=== PATIENT | female | born 1955 | race Caucasian/White ===

== ENCOUNTER 2018-04-11 07:19 | Emergency (ER) | payer SELFPAY ==
[~2018-04-11] VITALS: Ht 157.4 cm; Wt 54.4 kg
[2018-04-11] MEDS ORDERED: AVPAK AZITHROM250 M1 PO (09:18)
== END 2018-04-11 10:05 | disposition home or self-care (01) ==
LOC: ED 07:19
DX: J40 Bronchitis, not specified as acute or chronic (principal); J32.9 Chronic sinusitis, unspecified; Z98.890 Other specified postprocedural states

== ENCOUNTER 2021-07-10 11:08 | Inpatient (IN) | payer OTHER ==
[~2021-07-10] VITALS: Ht 157.5 cm; Wt 56.7 kg
[~2021-07-10 11:08] MED LIST: AVPAK AZITHROM250 M1 PO
[2021-07-10 11:23] VITALS: BP 128/57
[2021-07-10 11:49] VITALS: BP 122/60
[2021-07-10 11:54] LABS: BASO % 0.6 % (0.0-1.0); EOS # 0.1 10*3/uL (0.0-0.4); EOS % 1.1 % (1.0-4.0); HEMATOCRIT 38.3 % (37.0-47.0); LYMPH # 1.6 10*3/uL (1.3-4.4); LYMPH % 23.5 % (27.0-41.0); MEAN CELL VOLUME 80.3 fl (81.0-99.0); MEAN CORPUSCULAR HGB 25.6 pg (27.0-31.0); MEAN CORPUSCULAR HGB CONC 31.9 g/dl (33.0-37.0); MEAN PLATELET VOLUME 10.8 fl (9.6-12.3); MONO # 0.4 10*3/uL (0.1-1.0); MONO % 5.9 % (3.0-9.0); NEUT # 4.8 10*3/uL (2.3-7.9); NEUT % 68.5 % (47.0-73.0); PLATELET COUNT AUTOMATED 215 10*3/uL (130-400); RED BLOOD COUNT 4.77 10*6/uL (4.10-5.10); RED CELL DISTRI WIDTH 14.2 % (0-14.5)
[2021-07-10] MEDS ORDERED: TOPROL XL25 MG PO (11:58)
[2021-07-10] MEDS ORDERED: SIMVASTATIN20 MG PO (11:58)
[2021-07-10] MEDS ORDERED: LOSARTAN POTASS25 M1 PO (11:59)
[2021-07-10] MEDS ORDERED: VITAMIN D350 MCG PO (12:02)
[2021-07-10] MEDS ORDERED: LATANOPROST2.5 ML OP (12:03)
[2021-07-10] MEDS ORDERED: COMBIGAN 0.2%-010 ML OP (12:03)
[2021-07-10 12:22] LABS: ALBUMIN 3.8 gm/dl (3.1-4.5); ALKALINE PHOSPHATASE 69 U/L (45-117); BUN 19 mg/dl (7-24); CHLORIDE 111 mmol/L (98-107); CREATININE 0.97 mg/dL (0.55-1.02); POTASSIUM 3.7 mmol/L (3.5-5.1); SGOT/AST 34 IU/L (3-35); SGPT/ALT 69 U/L (12-78); SODIUM 143 mmol/L (136-145)
[2021-07-10 12:23] LABS: TROPONIN I 0.036 ng/ml (<0.045)
[2021-07-10] MEDS ORDERED: ATENOLOL25 MG PO (13:29)
[2021-07-10 14:02] VITALS: BP 160/89
[2021-07-10 15:47] VITALS: BP 165/87
[2021-07-10 16:23] VITALS: BP 184/110
[2021-07-10 20:00] VITALS: BP 154/92
[2021-07-11] VITALS: BP 153/85
[2021-07-11 07:10] LABS: BASO % 0.6 % (0.0-1.0); EOS # 0.2 10*3/uL (0.0-0.4); EOS % 2.2 % (1.0-4.0); HEMATOCRIT 41.3 % (37.0-47.0); LYMPH % 27.9 % (27.0-41.0); MEAN CELL VOLUME 79.6 fl (81.0-99.0); MEAN CORPUSCULAR HGB 24.9 pg (27.0-31.0); MEAN CORPUSCULAR HGB CONC 31.2 g/dl (33.0-37.0); MEAN PLATELET VOLUME 11.2 fl (9.6-12.3); MONO # 0.7 10*3/uL (0.1-1.0); NEUT # 4.2 10*3/uL (2.3-7.9); PLATELET COUNT AUTOMATED 239 10*3/uL (130-400); RED BLOOD COUNT 5.19 10*6/uL (4.10-5.10); RED CELL DISTRI WIDTH 14.3 % (0-14.5); WHITE BLOOD COUNT 7.1 10*3/uL (4.8-10.8)
[2021-07-11 07:41] LABS: ALBUMIN 3.8 gm/dl (3.1-4.5); BUN 23 mg/dl (7-24); CHLORIDE 106 mmol/L (98-107); CHOLESTEROL 200 mg/dL (<200); CREATININE 0.91 mg/dL (0.55-1.02); POTASSIUM 3.9 mmol/L (3.5-5.1); SGOT/AST 29 IU/L (3-35); SGPT/ALT 64 U/L (12-78); SODIUM 140 mmol/L (136-145); TRIGLYCERIDES 82 mg/dl (<150)
[2021-07-11 07:42] LABS: ALKALINE PHOSPHATASE 67 U/L (45-117); LDL CHOLESTEROL 130 mg/dL (9-159); TOTAL PROTEIN 7.2 gm/dL (6.4-8.2)
[2021-07-11 08:00] VITALS: BP 134/84
[2021-07-11 16:00] VITALS: BP 151/77
[2021-07-11 20:00] VITALS: BP 154/76
[2021-07-12] VITALS (9 sets, daily range): BP systolic 120–169; BP diastolic 60–108
[2021-07-12 10:37] LABS: BASO # 0.1 10*3/uL (0.0-0.1); BASO % 0.6 % (0.0-1.0); EOS # 0.1 10*3/uL (0.0-0.4); EOS % 1.6 % (1.0-4.0); HEMATOCRIT 42.5 % (37.0-47.0); LYMPH % 24.4 % (27.0-41.0); MEAN CORPUSCULAR HGB 25.1 pg (27.0-31.0); MEAN CORPUSCULAR HGB CONC 31.8 g/dl (33.0-37.0); MONO # 0.7 10*3/uL (0.1-1.0); NEUT # 5.4 10*3/uL (2.3-7.9); NEUT % 65.2 % (47.0-73.0); PLATELET COUNT AUTOMATED 248 10*3/uL (130-400); RED BLOOD COUNT 5.38 10*6/uL (4.10-5.10); RED CELL DISTRI WIDTH 14.1 % (0-14.5); WHITE BLOOD COUNT 8.3 10*3/uL (4.8-10.8)
[2021-07-12 10:55] LABS: ALBUMIN 3.9 gm/dl (3.1-4.5); ALKALINE PHOSPHATASE 70 U/L (45-117); BUN 27 mg/dl (7-24); CHLORIDE 106 mmol/L (98-107); CREATININE 1.03 mg/dL (0.55-1.02); POTASSIUM 4.2 mmol/L (3.5-5.1); SGOT/AST 20 IU/L (3-35); SGPT/ALT 53 U/L (12-78); SODIUM 137 mmol/L (136-145); TOTAL PROTEIN 7.3 gm/dL (6.4-8.2)
[2021-07-12 10:57] LABS: TROPONIN I < 0.015 ng/ml (<0.045)
[2021-07-12 16:33] LABS: ACT PARTIAL THROMBO TIME 21.5 SECONDS (20.0-32.1)
[2021-07-13] VITALS: BP 136/85
[2021-07-13 04:00] VITALS: BP 116/64
[2021-07-13 08:00] VITALS: BP 119/62
[2021-07-13 12:00] VITALS: BP 91/47
[2021-07-13 16:00] VITALS: BP 109/69
[2021-07-13 20:00] VITALS: BP 148/74
[2021-07-14] VITALS: BP 124/49
== END 2021-07-14 03:24 | disposition short-term general hospital (02) | DRG 292 ==
LOC: ED 11:08 → EDHOLD 13:13 → 4E 13:13 → ICCU 13:13 → 5E 15:44 → 4E 16:19 → 5E 07-11 22:59 → ICCU 07-12 10:03
PROVIDERS: Emergency Medicine; Family Medicine; Social Worker Clinical; ADMIT Internal Medicine; ATTEND Internal Medicine
DX: I11.0 Hypertensive heart disease with heart failure (principal); Q23.1 Congenital insufficiency of aortic valve; E83.41 Hypermagnesemia; I50.9 Heart failure, unspecified; R73.9 Hyperglycemia, unspecified; I45.5 Other specified heart block; E78.00 Pure hypercholesterolemia, unspecified; R00.8 Other abnormalities of heart beat; E78.5 Hyperlipidemia, unspecified; I49.3 Ventricular premature depolarization; E87.8 Other disorders of electrolyte and fluid balance, not elsewhere classified; Z88.6 Allergy status to analgesic agent; Z82.49 Family history of ischemic heart disease and other diseases of the circulatory system; Z82.3 Family history of stroke

== ENCOUNTER 2022-03-02 15:49 | Emergency (ER) | payer OTHER, MEDICAID ==
[~2022-03-02] VITALS: Wt 62.1 kg
[~2022-03-02 15:49] MED LIST changes: +ATENOLOL25 MG PO; +COMBIGAN 0.2%-010 ML OP; +LATANOPROST2.5 ML OP; +LOSARTAN POTASS25 M1 PO; +SIMVASTATIN20 MG PO; +TOPROL XL25 MG PO; +VITAMIN D350 MCG PO
== END 2022-03-02 16:43 | disposition home or self-care (01) ==
LOC: ED 15:49
DX: S10.86XA Insect bite of other specified part of neck, initial encounter (principal); W57.XXXA Bitten or stung by nonvenomous insect and other nonvenomous arthropods, initial encounter; Y93.89 Activity, other specified; Y92.89 Other specified places as the place of occurrence of the external cause; Y99.8 Other external cause status

== ENCOUNTER 2024-09-10 09:31 | Emergency (ER) | payer MEDICARE ==
[~2024-09-10] VITALS: Ht 157.4 cm; Wt 59.0 kg
[2024-09-10 10:00] LABS: BASO % 0.4 % (0.0-1.0); EOS # 0.2 10*3/uL (0.0-0.4); EOS % 1.4 % (1.0-4.0); HEMATOCRIT 34.3 % (37.0-47.0); LYMPH # 1.3 10*3/uL (1.3-4.4); LYMPH % 12.1 % (27.0-41.0); MEAN CELL VOLUME 80.1 fl (81.0-99.0); MEAN CORPUSCULAR HGB 25.5 pg (27.0-31.0); MEAN CORPUSCULAR HGB CONC 31.8 g/dl (33.0-37.0); MEAN PLATELET VOLUME 9.7 fl (9.6-12.3); MONO # 0.6 10*3/uL (0.1-1.0); MONO % 5.5 % (3.0-9.0); NEUT # 8.7 10*3/uL (2.3-7.9); PLATELET COUNT AUTOMATED 198 10*3/uL (130-400); RED BLOOD COUNT 4.28 10*6/uL (4.10-5.10); RED CELL DISTRI WIDTH 13.2 % (0-14.5); WHITE BLOOD COUNT 10.8 10*3/uL (4.8-10.8)
[2024-09-10 10:13] LABS: ACT PARTIAL THROMBO TIME 22.2 SECONDS (20.0-32.1)
[2024-09-10 10:24] LABS: POTASSIUM 3.8 mmol/L (3.4-5.1); TOTAL PROTEIN 6.4 gm/dL (6.0-8.0)
[2024-09-10] MEDS ORDERED: HEPARIN SODIUM 250 ML IV SCH (10:30)
[2024-09-10] MEDS ORDERED: ASPIRIN, CHEWABLE 81 MG TAB PO ONE (10:40)
[2024-09-10] MEDS ORDERED: MORPHINE Sulfate 2 MG/ML SYR IV ONE (12:40)
== END 2024-09-10 13:30 | disposition short-term general hospital (02) ==
LOC: ED 09:31
PROVIDERS: Internal Medicine
DX: I62.9 Nontraumatic intracranial hemorrhage, unspecified (principal); R11.2 Nausea with vomiting, unspecified; R03.0 Elevated blood-pressure reading, without diagnosis of hypertension; I25.10 Atherosclerotic heart disease of native coronary artery without angina pectoris; I50.9 Heart failure, unspecified; I13.0 Hypertensive heart and chronic kidney disease with heart failure and stage 1 through stage 4 chronic kidney disease, or unspecified chronic kidney disease; N18.9 Chronic kidney disease, unspecified; E78.5 Hyperlipidemia, unspecified; Z88.5 Allergy status to narcotic agent; Z98.890 Other specified postprocedural states

== ENCOUNTER → 2025-01-07 | Outpatient (CLI) | payer MEDICARE ==
[~2025-01-07] MED LIST changes: +ASPIRIN ADULT L81 M1 PO; +CEFTRIAXONE2 G1 IV; +COREG6.25 MG PO; +COZAAR25 M1 PO; +CYCLOBENZAPRINE5 M3 PO; +LASIX20 MG PO; +SUMATRIPTAN SUC25 M1 PO
== END | disposition home or self-care (01) ==
LOC: RAD 10:21
PROVIDERS: ATTEND Nurse Practitioner
DX: Z13.820 Encounter for screening for osteoporosis (principal); Z78.0 Asymptomatic menopausal state